=== PATIENT | female | born 1945 | race Caucasian/White ===

== ENCOUNTER → 2017-02-14 | Outpatient (CLI) | payer MEDICARE, OTHER ==
--- NOTE | 2017-02-14 12:52 | KCIC ---
Bone mineral density study dated 02/14/2017. Indication: Postmenopausal screening. Findings: Lower lumbar spine: BMD (g/cm2): Total L1-L4.......... 1.126. . T-Score: Total L1-L4.................... 0.7. Z-Score: Total L1-L4 ................... 2.9. Left Hip: BMD (g/cm2): Total .......... 0.852. . T-Score: Total .................... -0.7. Z-Score: Total ................... 0.8. World Health Organization criteria for BMD interpretation classify patients as Normal (T-score at or above -1.0), Osteopenic (T-score between -1.0 and -2.5), or Osteoporotic (T-score at or below -2.5). Impression: According to the World Health Organization, bone mineral density values within the range of normal. Electronically signed by: Chetan Junior MD (02/14/2017 12:50 PM) [facility]-KC[facility]
--- NOTE | 2017-02-14 14:33 | RAD ---
DATE: 02/14/2017 EXAM: MAMMO ALFREDA SCREENING BILATERAL HISTORY: Routine screening COMPARISON: None available The breast parenchyma shows scattered fibroglandular densities. Breast parenchyma level B. FINDINGS: 2-D and 3-D tomosynthesis imaging was performed in CC and MLO projections. There are scattered fibroglandular densities in a heterogeneous pattern. No discrete breast mass is seen. Benign type calcifications are evident, predominantly in the right. No suspicious microcalcifications are seen. IMPRESSION: There is no mammographic evidence of malignancy in either breast. BI-RADS CATEGORY: 2 BENIGN FINDING(S) RECOMMENDED FOLLOW-UP: 12M 12 MONTH FOLLOW-UP PQRS compliance statement: Patient information was entered into a reminder system with a target due date for the next mammogram. Mammography is a sensitive method for finding small breast cancers, but it does not detect them all and is not a substitute for careful clinical examination. A negative mammogram does not negate a clinically suspicious finding and should not result in delay in biopsying a clinically suspicious abnormality. "Our facility is accredited by the [employer] Mammography Program."
== END | disposition home or self-care (01) ==
LOC: KCIC DEXA 10:37
PROVIDERS: ATTEND Family Medicine
DX: Z12.31 Encounter for screening mammogram for malignant neoplasm of breast (principal); Z13.820 Encounter for screening for osteoporosis; Z78.0 Asymptomatic menopausal state
CPT/HCPCS: 77063; 77080; G0202; 77067

== ENCOUNTER → 2020-11-16 | Outpatient (CLI) | payer MEDICARE, OTHER ==
--- NOTE | 2020-11-16 08:55 | RAD ---
EXAMINATION: US ABDOMEN LIMITED INDICATION: 75 years, Female, epigastric pain. COMPARISON: None TECHNIQUE: Grayscale, color Doppler and limited spectral Doppler images of the right upper quadrant w ere obtained. FINDINGS: LIVER: SIZE (LENGTH): 14.1 cm. ECHOGENICITY: Increased PARENCHYMA: Mild heterogeneous echotexture. No discrete focal lesion. INTRAHEPATIC BILE DUCTS: Nondilated. PORTAL VEIN: Patent with normal hepatopedal flow. GALLBLADDER: GALLBLADDER WALL THICKNESS: 2 mm MORPHOLOGY: Normal morphology. No wall hyperemia or pericholecystic free fluid. LUMEN: Multiple sub-5 m nonmovable echogenic foci, measuring up to 4 mm. COMMON BILE DUCT DIAMETER: 1.6 mm RIGHT KIDNEY: MEASURES: 9.9 x 4.5 x 4.9 cm. MORPHOLOGY/PARENCHYMA: Normal corticomedullary differentiation with no shadowing calculus or discrete masses. COLLECTING SYSTEM: No hydronephrosis. PANCREAS: VISUALIZED PORTIONS: Head APPEARANCE: Within normal limits. OTHER: RETROPERITONEUM, INFERIOR VENA CAVA: Normal caliber. AORTA: Not visualized. FLUID:No free fluid. IMPRESSION: 1. No acute sonographic findings in the right upper abdomen. 2. Moderate diffuse hepatic steatosis. 3. Multiple sub-5 mm nonmobile echogenic foci gallbladder, suggesting of polyps versus adherent stone s. Recommend 12 months follow-up with ultrasound to ensure stability. Electronically signed by: Lidia Mcclain MD (11/16/2020 8:53 AM) [id number]
--- NOTE | 2020-11-16 12:38 | RAD ---
HEPATOBILIARY SCAN WITH EJECTION FRACTION History: Epigastric pain. Procedure: Serial static images are obtained of the liver and biliary system in the frontal projectio n following IV administration of 5.1 mCi of Technetium 99m Choletec. After filling of the gallbladd er, fatty meal protocol is utilized and patient drank 8 ounces of Ensure and returned to supine posit ion and dynamic imaging continued x60 minutes. The gallbladder ejection fraction is calculated. Findings: The initial image already demonstrates tracer in the gallbladder and bile ducts and multiple small christian wel loops. The gallbladder ejection fraction measures 44% (normal gallbladder EF is 35% or greater). IMPRESSION: 1. The cystic duct and common bile duct are patent. Negative for acute cholecystitis. 2. The gallbladder ejection fraction is normal. Electronically signed by: Denilson Butler MD (11/16/2020 12:36 PM) [id number]
== END ==
LOC: US 08:00
PROVIDERS: ATTEND Internal Medicine Gastroenterology
DX: K76.0 Fatty (change of) liver, not elsewhere classified (principal)
CPT/HCPCS: 76705; 78227; A9537

== ENCOUNTER 2021-05-25 09:15 | Day surgery (SDC) | payer MEDICARE, OTHER ==
[~2021-05-25] VITALS: Ht 172.7 cm; Wt 69.0 kg
[~2021-05-25 09:15] MED LIST: DEXAMETHASONE SOD PHOS 4 MG/ML VIAL ONE; DOXY25TA16 PO; GLYCOPYRROLATE 1 MG/5 ML VIAL. ONE; HYDROmorphone 2 MG/ML INJ. IVP PRN; IV RINGERS,LACTATED 1000ML 1,000 ML IV SCH; LIDOCAINE 2% PF 5 ML VIAL. ONE; NAPR1TAB25 PO; NEOSTIGMINE METHYLSULFATE 5 MG/5 ML SYRINGE. ONE; ONDANSETRON PF 4 MG/2 ML VIAL. ONE; PROCHLORPERAZINE 10 MG/2 ML VIAL. IVP PRN; PROPOFOL 10 MG/ML (20ML) VIAL. IV ONE; ROCURONIUM 100 MG/10 ML VIAL. ONE; ceFAZolin SODIUM IV Push 1 GM VIAL. IVP PRN; fentaNYL PF VIAL 100 MCG/2 ML VIAL IVP PRN; fentaNYL PF VIAL 100 MCG/2 ML VIAL ONE
[2021-05-25 09:56] VITALS: BP 193/89
[2021-05-25] MEDS ORDERED: SURGICEL HEMOSTAT 4X8 EACH. ONE (11:44)
[2021-05-25] MEDS ORDERED: IOHEXOL 300 MG/ML 50 ML VIAL. ONE (11:44)
[2021-05-25] MEDS ORDERED: BUPIVACAINE-EPI 0.5% 30 ML VIAL KIT. ONE (11:44)
[2021-05-25] MEDS ORDERED: PHENYLEPHRINE in 0.9% NACL PF 1 MG/10 ML SYRINGE. IV ONE (12:11)
[2021-05-25] MEDS ORDERED: SEVOFLURANE 61 TO 120 MINUTES. IH ONE (12:11)
[2021-05-25] MEDS ORDERED: ePHEDrine PF IN SALINE 50 MG/10 ML SYRINGE. IV ONE (12:14)
[2021-05-25] MEDS ORDERED: ESMOLOL 100 MG/10 ML VIAL. IVP ONE (12:23)
--- NOTE | 2021-05-25 12:43 | RAD ---
EXAM: Intraoperative cholangiogram HISTORY: Cholecystectomy. Pain. COMPARISON: None. FINDINGS: 4 fluoroscopic images were obtained during an intraoperative cholangiogram. The images demo nstrate contrast opacification of the biliary tree and proximal small bowel. There is abrupt narrowin g of the distal common bile duct near the ampulla. The total fluoroscopy time is 0.25 minutes. IMPRESSION: Segmental narrowing of the distal common bile duct near the ampulla, possibly due to a sp asm or stricture. The imaging appearance does not favor a retained biliary stone. Electronically signed by: Shasta Carter MD (05/25/2021 12:40 PM) [id number]
--- NOTE | 2021-05-25 12:56 | PDOC4 ---
Operative Note Operative Note Operative Note: Preoperative Diagnosis: Symptomatic cholelithiasis Postoperative Diagnosis: Same Procedure: Laparoscopic cholecystectomy with intraoperative cholangiogram Surgeons: Srinivas Cable Swager: ROHITH Mathur Anesthesia: Gen. Estimated Blood Loss: 10 mL Specimen: Gallbladder to pathology Drains: None Complications: None Indications: The patient is a 75-year-old female who is referred after evaluation was suggestive of either symptomatic gallstones or polyps. Surgical treatment was offered by means of a laparoscopic cholecystectomy. The risks of surgery were discussed which include bleeding, infection, bile duct injury, bile leak, pain, the potential for additional surgeries or procedures. The patient understands and would like to proceed. Description: The patient was taken to the operating room and laid supine on the operating table. General anesthesia was performed. The abdomen was prepped with ChloraPrep and draped in a standard surgical fashion. A small supraumbilical incision was made with a scalpel. The Veress needle was then inserted and a pneumoperitoneum was then created. A 5 mm trocar was then inserted and the laparoscope was introduced. In the upper midabdomen a 5 mm trocar was inserted and in the right upper quadrant two 2.3 mm mini lap graspers were inserted. The gallbladder was retracted cephalad. The cystic duct was dissected free from surrounding tissues. One clip was placed on the duct near the gallbladder junction. An opening was made in the duct and a cholangiocatheter placed within and secured with a clip. Using contrast dye and fluoroscopy an intraoperative cholangiogram was performed that appeared unremarkable. The clip and catheter were then withdrawn. Three clips were placed on the cystic duct and it was divided. The cystic artery was then identified, dissected free, doubly clipped and divided as well. The gallbladder was then mobilized away from the liver with cautery. The umbilical 5 millimeter trocar was exchanged for an 11 millimeter trocar. The gallbladder was then placed in an endoscopic bag and extracted at the umbilical trocar site. The fascia there was closed with an 0 Vicryl suture and infiltrated with 0.5% marcaine. All blood and irrigation fluid was suctioned and hemostasis was good. The remaining ports were removed and the pneumoperitoneum was relieved. The skin incisions were closed using 4-0 Monocryl suture. Steri-Strips and dressings were then applied. The patient tolerated the procedure well and was sent to the recovery room in stable condition. At the end of the case all counts were correct. YAZMIN TANNER MD May 25, 2021 12:56
[2021-05-25] MEDS ORDERED: HYDR-2761 PO (12:57)
--- NOTE | 2021-05-25 12:59 | DISCH ---
DISCHARGE INSTRUCTIONS Condition on Discharge Condition on Discharge: Stable Activity After Discharge Activity Instructions for Disc: Other, see below (no lifting over 20 lbs X 2 weeks, no driving while taking pain meds) Diet after Discharge Diet after Discharge: Regular Wound Incision Care Wound/Incision Care: Other, see below (may remove bandaids and shower tomorrow, steristrips will fall off on their own) Follow-Up Follow up with: Dr Tanner in office in 2 weeks, call for appointment [phone] YAZMIN TANNER MD May 25, 2021 12:59
[2021-05-25] MEDS ORDERED: fentaNYL PF VIAL 100 MCG/2 ML VIAL ONE (13:18)
[2021-05-25] MEDS ORDERED: MORPHINE SULFATE 2 MG/ML INJ. ONE (13:18)
[2021-05-25] MEDS: fentaNYL PF VIAL 100 MCG/2 ML VIAL IVP PRN ×2 (13:22→13:31)
[2021-05-25] MEDS: MORPHINE SULFATE 2 MG/ML INJ. IVP PRN ×2 (13:22→13:33)
[2021-05-25] MEDS ORDERED: HYDROcodone/APAP 5/325MG 1 TAB TABLET PO ONE (13:30)
[2021-05-25 14:00] VITALS: BP 145/68
--- NOTE | 2021-05-27 16:23 | PATHOLOGY ---
[facility] Accession Number: [id number] . 01 Material submitted: . gallbladder - GALLBLADDER AND CONTENTS . 01 Clinical history: . CHOLELITHIASIS LAP SAMEERA WITH GRAMS GALL STONES . 02 Diagnosis: Gallbladder, laparoscopic cholecystectomy: - Cholelithiasis. - Cholesterolosis, focal. - Chronic cholecystitis. - Small adenomatous polyp of gallbladder. (JPM:pit; 05/27/2021) P 05/27/2021 1408 Local . 02 Comment: There is no evidence of malignancy. (JP:pit; 05/27/2021) . 02 Electronically signed: . Yosvany Goldman MD, Pathologist NPI- [id number] . 01 Gross description: . Fixative: Formalin Labeled: Gallbladder and contents Specimen received: Intact Dimensions: 9.8 x 3.2 x 2.9 cm Lymph node: None Serosa: Blue-green and smooth Calculi: Multiple trinidad bosselated and soft choleliths aggregating 0.9 x 0.4 x 0.3 cm Mucosa: Brown-green and velvety with minimal trinidad stippling. The mucosa displays a trinidad polyp (0.2 x 0.2 x 0.2 cm) that appears confined to the mucosa. Average wall thickness: 0.2 cm Abnormalities: The lumen contains a possible brown-paz previously detached possible polyp (0.3 x 0.3 x 0.2 cm). The attachment site cannot definitively be identified. A1: Gallbladder, represented to include the entirety of the trinidad polyp and the previously detached possible polyp (TRIBE; 05/26/2021) DKA/DKA 05/26/2021 1249 Local . 02 Pathologist provided ICD-10: K80.10 . 02 CPT . 936012 Specimen Comment: A courtesy copy of this report has been sent to [phone], [phone] Specimen Comment: [id number] Specimen Comment: Report sent to / DR SANCHEZ Performed at: 01 [facility] [address] [id number] MD Domenico Caballero MD Phone: [phone] Performed at: 02 [facility] [address] [place], [place] [id number] MD Yosvany Goldman MD Phone: [phone]
== END 2021-05-25 14:30 | disposition home or self-care (01) ==
LOC: SURG 09:15
PROVIDERS: ATTEND Surgery
DX: K80.10 Calculus of gallbladder with chronic cholecystitis without obstruction (principal); K21.9 Gastro-esophageal reflux disease without esophagitis; Z85.828 Personal history of other malignant neoplasm of skin; Z79.899 Other long term (current) drug therapy; Z98.890 Other specified postprocedural states; Z98.51 Tubal ligation status
CPT/HCPCS: 47563; 74300; A4213; A4364; A4930; A6219; C1887; J0690; J1100; J2270; J2370; J2405; J2704; J2710; J3010; J3490; Q9967; A4452; A4657

== ENCOUNTER 2021-09-15 08:41 | Day surgery (SDC) | payer MEDICARE, OTHER ==
[~2021-09-15] VITALS: Ht 172.7 cm; Wt 67.2 kg
[~2021-09-15 08:41] MED LIST changes: -DEXAMETHASONE SOD PHOS 4 MG/ML VIAL ONE; -GLYCOPYRROLATE 1 MG/5 ML VIAL. ONE; +HYDR-2761 PO; +IBUP-1027 PO; -LIDOCAINE 2% PF 5 ML VIAL. ONE; +MORPHINE SULFATE 2 MG/ML INJ. IVP PRN; -NEOSTIGMINE METHYLSULFATE 5 MG/5 ML SYRINGE. ONE; -ONDANSETRON PF 4 MG/2 ML VIAL. ONE; -PROPOFOL 10 MG/ML (20ML) VIAL. IV ONE; -ROCURONIUM 100 MG/10 ML VIAL. ONE; -fentaNYL PF VIAL 100 MCG/2 ML VIAL ONE
[2021-09-15 09:18] LABS: BASO # 0.1 x10^3/uL (0.0-0.2); BASO % 1 % (0-3); EOS # 0.4 x10^3/uL (0.0-0.7); EOS % 4 % (0-3); HEMATOCRIT 42.4 % (36.0-47.0); HEMOGLOBIN 14.4 g/dL (12.0-15.5); LYMPH # 3.7 x10^3/uL (1.0-4.8); LYMPH % 43 % (24-48); MEAN CORPUSCULAR HEMOGLOBIN 30 pg (25-35); MEAN CORPUSCULAR HGB CONC 34 g/dL (31-37); MEAN CORPUSCULAR VOLUME 90 fL (79-100); MONO # 0.6 x10^3/uL (0.0-1.1); MONO % 7 % (0-9); NEUT # 3.8 x10^3/uL (1.8-7.7); NEUT % 45 % (31-73); PLATELET COUNT 227 x10^3/uL (140-400); RED BLOOD COUNT 4.73 x10^6/uL (3.50-5.40); RED CELL DISTRIBUTION WIDTH 13.9 % (11.5-14.5); WHITE BLOOD COUNT 8.6 x10^3/uL (4.0-11.0)
[2021-09-15 09:31] LABS: CALCIUM 9.7 mg/dL (8.5-10.1); GFR 54.1; POTASSIUM 3.4 mmol/L (3.5-5.1)
[2021-09-15 09:35] LABS: ALBUMIN 3.8 g/dL (3.4-5.0); TOTAL BILIRUBIN 0.4 mg/dL (0.2-1.0); TOTAL PROTEIN 7.7 g/dL (6.4-8.2)
--- NOTE | 2021-09-15 09:44 | PDOC1 ---
History and Physical Date of Admission Date of Admission DATE: 09/15/21 TIME: 09:37 Identification/Chief Complaint Chief Complaint Ambulatory surgery on right toe Source Source: Patient History of Present Illness History of Present Illness Ms. Chen is a 76-year-old female with past medical history GERD, back pain, who presents to the outpatient surgical clinic for surgery on her right fifth toe. She reports pain with walking for a number of years. She has been followed by for some time and presents today for surgical correction of her right hammertoe. Past Medical History Past Medical History GERD, arthritis, back pain, skin cancer Past Surgical History Past Surgical History Tonsillectomy, wisdom teeth extraction, tubal ligation, cholecystectomy, right ankle surgery, Mohs surgery Family History Family History Colon cancer Social History Smoke: Quit ALCOHOL: social Drugs: None Current Medications Current Medications Current Medications Fentanyl Citrate (Fentanyl 2ml Vial) 25 mcg PRN Q5MIN PRN IVP MILD PAIN 1-3; Start 09/15/21 at 06:00; Stop 09/15/21 at 20:00 Fentanyl Citrate (Fentanyl 2ml Vial) 50 mcg PRN Q5MIN PRN IVP MODERATE PAIN 4- 6; Start 09/15/21 at 06:00; Stop 09/15/21 at 20:00 Morphine Sulfate (Morphine Sulfate) 1 mg PRN Q10MIN PRN IVP SEVERE PAIN 7-10; Start 09/15/21 at 06:00; Stop 09/15/21 at 20:00 Ringer's Solution 1,000 ml @ 30 mls/hr Q24H IV Last administered on 09/15/21at 09:19; Start 09/15/21 at 06:00; Stop 09/15/21 at 17:59 Hydromorphone HCl (Dilaudid) 0.5 mg PRN Q10MIN PRN IVP SEVERE PAIN 7-10, 2nd CHOICE; Start 09/15/21 at 06:00; Stop 09/15/21 at 20:00 Prochlorperazine Edisylate (Compazine) 5 mg PACU PRN PRN IVP NAUSEA, MRX1; Start 09/15/21 at 06:00; Stop 09/15/21 at 20:00 Cefazolin Sodium (Ancef) 1 gm 1X PREOP PRN IVP PRIOR TO PROCEDURE; Start 09/15/21 at 06:00; Stop 09/15/21 at 09:23; Status DC Active Scripts Active Reported Ibuprofen 400 Mg Tablet 400 Mg PO PRN Q6HRS PRN Unisom Sleep Aid (Doxylamine Succinate) 25 Mg Tablet 25 Mg PO PRN PRN Allergies Allergies: Coded Allergies: No Known Drug Allergies (Unverified , 09/15/21) ROS Review of System GENERAL: No history of weight change, weakness or fevers. SKIN: No bruising, hair changes or rashes. EYES: No blurred, double or loss of vision. NOSE AND THROAT: No history of nosebleeds, hoarseness or sore throat. HEART: Denies chest pain, denies palpitations. LUNGS: Denies cough, hemoptysis, wheezing or shortness of breath. GASTROINTESTINAL: Denies nausea, vomiting, abdominal pain. GENITOURINARY: Denies dysuria, frequency, urgency, hematuria. NEUROLOGIC: Denies history of numbness, tingling, tremor or weakness. PSYCHIATRIC: Denies anxiety, denies depression. ENDOCRINE: No history of heat or cold intolerance, polyuria or polydipsia. EXTREMITIES: Pain with walking. Denies muscle weakness or stiffness. Physical Exam Physical Exam General: Alert, Oriented X3, Cooperative, No acute distress HEENT: PERRLA, EOMI Lungs: Clear to auscultation, Normal air movement Heart: RRR, no murmurs Cardiovascular: S1, S2 Abdomen: Normal bowel sounds, Soft, No tenderness Extremities: No clubbing, No cyanosis Skin: Right fifth toe erythematous with bunion on right lateral side. No rashes, No significant lesion Neuro: Normal speech, Normal tone, Sensation intact Psych/Mental Status: Mental status NL, Mood NL Vitals Vitals Vital Signs Date Time Temp Pulse Resp B/P (MAP) Pulse Ox O2 Delivery O2 Flow Rate FiO2 09/15/21 09:10 97.8 79 20 173/72 94 Room Air 97.8 Labs Labs Laboratory Tests Test 09/15/21 09:00 09/15/21 09:10 POC SARS CoV-2 Antigen Negative (NEGATIVE) White Blood Count 8.6 x10^3/uL (4.0-11.0) Red Blood Count 4.73 x10^6/uL (3.50-5.40) Hemoglobin 14.4 g/dL (12.0-15.5) Hematocrit 42.4 % (36.0-47.0) Mean Corpuscular Volume 90 fL (79-100) Mean Corpuscular Hemoglobin 30 pg (25-35) Mean Corpuscular Hemoglobin Concent 34 g/dL (31-37) Red Cell Distribution Width 13.9 % (11.5-14.5) Platelet Count 227 x10^3/uL (140-400) Neutrophils (%) (Auto) 45 % (31-73) Lymphocytes (%) (Auto) 43 % (24-48) Monocytes (%) (Auto) 7 % (0-9) Eosinophils (%) (Auto) 4 % (0-3) Basophils (%) (Auto) 1 % (0-3) Neutrophils # (Auto) 3.8 x10^3/uL (1.8-7.7) Lymphocytes # (Auto) 3.7 x10^3/uL (1.0-4.8) Monocytes # (Auto) 0.6 x10^3/uL (0.0-1.1) Eosinophils # (Auto) 0.4 x10^3/uL (0.0-0.7) Basophils # (Auto) 0.1 x10^3/uL (0.0-0.2) Sodium Level 141 mmol/L (136-145) Potassium Level 3.4 mmol/L (3.5-5.1) Chloride Level 106 mmol/L (98-107) Carbon Dioxide Level 27 mmol/L (21-32) Anion Gap 8 (6-14) Blood Urea Nitrogen 18 mg/dL (7-20) Creatinine 1.0 mg/dL (0.6-1.0) Estimated GFR (Cockcroft-Gault) 54.1 BUN/Creatinine Ratio 18 (6-20) Glucose Level 122 mg/dL (70-99) Calcium Level 9.7 mg/dL (8.5-10.1) Laboratory Tests Test 09/15/21 09:00 09/15/21 09:10 POC SARS CoV-2 Antigen Negative (NEGATIVE) White Blood Count 8.6 x10^3/uL (4.0-11.0) Red Blood Count 4.73 x10^6/uL (3.50-5.40) Hemoglobin 14.4 g/dL (12.0-15.5) Hematocrit 42.4 % (36.0-47.0) Mean Corpuscular Volume 90 fL (79-100) Mean Corpuscular Hemoglobin 30 pg (25-35) Mean Corpuscular Hemoglobin Concent 34 g/dL (31-37) Red Cell Distribution Width 13.9 % (11.5-14.5) Platelet Count 227 x10^3/uL (140-400) Neutrophils (%) (Auto) 45 % (31-73) Lymphocytes (%) (Auto) 43 % (24-48) Monocytes (%) (Auto) 7 % (0-9) Eosinophils (%) (Auto) 4 % (0-3) Basophils (%) (Auto) 1 % (0-3) Neutrophils # (Auto) 3.8 x10^3/uL (1.8-7.7) Lymphocytes # (Auto) 3.7 x10^3/uL (1.0-4.8) Monocytes # (Auto) 0.6 x10^3/uL (0.0-1.1) Eosinophils # (Auto) 0.4 x10^3/uL (0.0-0.7) Basophils # (Auto) 0.1 x10^3/uL (0.0-0.2) Sodium Level 141 mmol/L (136-145) Potassium Level 3.4 mmol/L (3.5-5.1) Chloride Level 106 mmol/L (98-107) Carbon Dioxide Level 27 mmol/L (21-32) Anion Gap 8 (6-14) Blood Urea Nitrogen 18 mg/dL (7-20) Creatinine 1.0 mg/dL (0.6-1.0) Estimated GFR (Cockcroft-Gault) 54.1 BUN/Creatinine Ratio 18 (6-20) Glucose Level 122 mg/dL (70-99) Calcium Level 9.7 mg/dL (8.5-10.1) VTE Prophylaxis Ordered VTE Prophylaxis Devices: No VTE Pharmacological Prophylaxi: No Assessment/Plan Assessment/Plan Right hammertoe GERD Arthritis Plan: Patient will have surgical correction of her right fifth toe. Anticipate no surgical complications and she will discharge home following surgery. FEN - normal diet PPX - ambulatory FULL CODE Dispo - outpatient surgery Justifications for Admission Other Justification BRYAN DINH MD September 15, 2021 09:44
[2021-09-15] MEDS ORDERED: LIDOCAINE 1% PF 30 ML VIAL. ONE (10:36)
[2021-09-15] MEDS ORDERED: DEXAMETHASONE SOD PHOS 4 MG/ML VIAL ONE ×2 (10:36→10:58)
[2021-09-15] MEDS ORDERED: POVIDONE-IODINE 10% TOPICAL OINTMENT 28GM TUBE. TP ONE (10:36)
[2021-09-15] MEDS ORDERED: BUPIVACAINE MPF 0.5% 30 ML VIAL. ONE (10:37)
[2021-09-15] MEDS ORDERED: fentaNYL PF VIAL 100 MCG/2 ML VIAL ONE (10:57)
[2021-09-15] MEDS ORDERED: PROPOFOL 10 MG/ML (20ML) VIAL. IV ONE (10:58)
[2021-09-15] MEDS ORDERED: LIDOCAINE 2% PF 5 ML VIAL. ONE (10:58)
[2021-09-15] MEDS ORDERED: ONDANSETRON PF 4 MG/2 ML VIAL. ONE (10:58)
[2021-09-15] MEDS ORDERED: SEVOFLURANE 31 TO 60 MINUTES. IH ONE (10:59)
[2021-09-15] MEDS ORDERED: DEXAMETHASONE SOD PHOS 4 MG/ML VIAL INT ART ONE (11:36)
[2021-09-15] MEDS ORDERED: LIDOCAINE 1% PF 30 ML VIAL. INJ ONE (11:36)
[2021-09-15] MEDS ORDERED: BUPIVACAINE MPF 0.5% 30 ML VIAL. INJ ONE (11:36)
[2021-09-15] MEDS ORDERED: ePHEDrine PF IN SALINE 50 MG/10 ML SYRINGE. IV ONE (11:50)
--- NOTE | 2021-09-15 12:15 | PDOC4 ---
OPERATIVE NOTE: Surgeon: Heather Teletray Operator: Mel Perdomo Pre operative diagnosis: Hammer toe right 5th digit Post operative diagnosis Same Procedure: arthroplasty 5th toe right Anesthesia: LMA with local Hemostasis: right ankle tourniquet at 250mmHg EBL: 0mL implant: none pathology: proximal phalanx head 5th toe right intraoperative findings: note thickening of nerve to the dorsal medial PIPJ with adhesion noted, easily loosened and retracted from surgical site. no soft tissue mass noted. Patient tolerated both anesthesia and procedure well, tranported to PACU with VSS and VSI to right foot ELIZABETH COOPER DPM September 15, 2021 12:15
[2021-09-15] MEDS ORDERED: HYDR-2761 PO (12:24)
[2021-09-15 12:40] VITALS: BP 124/56
--- NOTE | 2021-09-15 13:17 | OP ---
DATE OF SURGERY: 09/15/2021 PREOPERATIVE DIAGNOSIS: Hammertoe of the right fifth toe. POSTOPERATIVE DIAGNOSIS: Hammertoe of the right fifth toe. PROCEDURE: Arthroplasty of the fifth toe of the right foot. SURGEON: Dr. Addie Romero. SKIN DIVING TEACHER: Mel Perdomo. ANESTHESIA: LMA with local. HEMOSTASIS: Right ankle tourniquet at 250 mmHg. INDICATIONS: The patient is a 76-year-old female with a painful fifth toe to the right foot with associated corn. The patient has failed conservative treatment of debridement, wider shoes, accommodative padding, NSAIDs and ice. The x-ray show a dorsally contracted digit with varus rotation of the fifth toe of the right foot. Discussed with the patient possible risks, benefits and complications to include delayed or nonhealing, infection, need for further surgery, loss of toe, foot, limb or life, floppy toe, flail toe, shortening of the toe, lack of toe purchase, regrowth of bone, recurrence of deformity, DVT, pulmonary embolism, chronic pain, damage to nerve or blood vessels, all questions were answered, the patient signed consent and placed in chart freely. DESCRIPTION OF PROCEDURE: The patient was transported to the operating room via a cart and placed on the operating table in supine position. Following verification of the surgery, the patient's limb was performed. A well-padded tourniquet was placed over the right ankle and LMA was administered per anesthesia and a local toe block was given to the fifth ray consisting of 1:1 mixture of 1% lidocaine plain and 0.5% Marcaine plain, 10 mL total. The right foot was prepped and draped in the usual aseptic manner. Esmarch bandage was used to exsanguinate the right foot and the right ankle tourniquet was inflated to 250 mmHg. Attention was directed to the right fifth toe where 2 converging semi-elliptical incisions were made proximal, lateral, dorsal to distal medial, dorsal. This was deepened to the level of the joint capsule and the skin was resected along with the callus. The small vessels were retracted from the field and noted that there was a thickening of the nerve and adhered to the proximal interphalangeal joint capsule. This was easily loosened with dissection with a hemostat and care was taken to reflect this from the surgical site. A transverse incision was made through the extensor digitorum tendon and medial and lateral collateral ligaments were then resected and a bone cutter was used to resect proximal phalanx head, this was sent to pathology. The wound was then copiously irrigated with sterile saline and the tendon was reapproximated with 3-0 Vicryl and the skin was reapproximated with 4-0 nylon. A postop injection was given of 0.5 mL of Decadron, which was 40 mg per 1 mL of Decadron and the wound was dressed with Adaptic gauze, 4 x 4s, Betadine ointment, Adaptic gauze, 4 x 4s, Kerlix bandage, Pablo bandage. The tourniquet was deflated and good perfusion was noted to all digits of the right foot. The patient tolerated both anesthesia and procedure well and was transferred to the PACU with vital signs stable and vascular status intact to the right foot. Postop instructions are in the chart. SEVERIANO DR: Angelica TID: [id number]
--- NOTE | 2021-09-15 16:25 | RAD ---
EXAM: XR FOOT_RIGHT 3 VIEWS 09/15/2021 12:14 PM CLINICAL INDICATION: Status post arthroplasty right fifth digit COMPARISON: None TECHNIQUE: AP, oblique, and lateral views of the right foot FINDINGS: There are surgical changes of resection of the head of the little toe small phalanx. There are screws in the lateral midfoot traversing the cuboid-cuneiform joint. No acute fracture. There is hallux valgus. Sequela of old lateral ankle injury. There is soft tissue gas and swelling of the lit tle toe, likely postoperative. IMPRESSION: Surgical changes of resection of the head of the little toe proximal phalanx. No acute a bnormality. Electronically signed by: Amber Oneal MD (09/15/2021 4:22 PM) [id number]
== END 2021-09-15 13:03 | disposition home or self-care (01) ==
LOC: SURG 08:41
PROVIDERS: ATTEND Podiatrist Foot & Ankle Surgery
DX: M20.41 Other hammer toe(s) (acquired), right foot (principal); K21.9 Gastro-esophageal reflux disease without esophagitis; M19.90 Unspecified osteoarthritis, unspecified site; Z90.49 Acquired absence of other specified parts of digestive tract; Z98.51 Tubal ligation status; Z98.890 Other specified postprocedural states; Z85.828 Personal history of other malignant neoplasm of skin; Z72.89 Other problems related to lifestyle
CPT/HCPCS: 28285; 36415; 73630; 80053; 85025; 88304; 88311; A4213; A4930; A6223; A6253; A6402; J1100; J2405; J2704; J3010; J3490; A4657; A6443